=== PATIENT | female | born 1940 | race Caucasian/White ===

== ENCOUNTER → 2016-08-21 | Outpatient (CLI) | payer OTHER ==
[~2016-08-21] MED LIST: PRED20TA PO
--- NOTE | 2016-09-08 00:48 | ECWPNPC ---
PATIENT NAME: JENY ZENDEJAS : 1940 GENDER: FEMALE VISIT DATE: 08/21/2016 DISCHARGE DATE: 08/21/16 1631 VISIT LOCKED DATE TIME: PHYSICIAN: BOBBY MENDES RESOURCE: BOBBY MENDES REASON FOR APPOINTMENT 1. ANAL CANCER PAIN HISTORY OF PRESENT ILLNESS NEW PATIENT CONSULT: 76 Y/O FEMALE HERE FOR PERSISTENT ANAL AND PERINEAL PAIN WITH HX OF RECTAL CANCER.HAS UNDERGONE CHEMOTHERAPY WITH LAST DOSE A FEW MOS. AGO.DESCRIBES PAIN CONSTANT SHARP PAIN.STATES THAT OXYCODONE 5/325 HELPFUL FOR SHORT TERM PAIN.HAVING ISSUES OF CONSTIPATION.RATING PAIN VAS 9/10.PAIN IS AGGREVATED BY PROLONGED SITTING OR STANDING. WHEN DID YOUR PAIN FIRST START? . BRIEFLY DESCRIBE HOW YOUR PAIN STARTED? . HOW DOES YOUR PAIN CHANGE WITH TIME? . DOES YOUR PAIN AWAKEN YOU FROM SLEEP? . HOW MANY HOURS OF SLEEP DO YOU NORMALLY GET? . ANY DIAGNOSTIC TESTING? . FACILITY WHERE TESTS WERE DONE? ____. PAIN TREATMENT TREATMENT YES CANCER HAVE YOU EVER HAD ANY TYPE OF CANCER?NO NO. PAIN SCREENING: PATIENT HAS A COMPLAINT OF ACUTE OR CHRONIC PAIN YES FALL RISK SCREENING: SCREENING :NO FALLS IN THE PAST YEAR CADET INVENTORY: QUESTIONNAIRE ASSESSEDTBD SCORE VALUE CALCULATED TBD CURRENT MEDICATIONS TAKING OXYCODONE-ACETAMINOPHEN 10-325 MG TABLET 1 TABLET NEEDED ORALLY EVERY 6 HRS TAKING COMPAZINE 10 MG TABLET 1 TABLET ORALLY THREE TIMES A DAY NEEDED TAKING LOMOTIL 2.5-0.025 MG TABLET 1 TABLET NEEDED ORALLY EVERY 4 HOURS NEEDED TAKING STOOL SOFTENER 100 MG CAPSULE 1 CAPSULE NEEDED ORALLY TWICE A DAY NEEDED TAKING STOOL SOFTENER & LAXATIVE 8.6-50 MG TABLET 1 TABLET IN THE EVENING NEEDED ORALLY TWICE A DAY NEEDED MEDICATION LIST REVIEWED AND RECONCILED WITH THE PATIENT PAST MEDICAL HISTORY VAGINAL/RECTAL CANCER ALLERGIES N.K.D.A. SURGICAL HISTORY TUBAL LIGATION YEARS AGO [facility] 2015 FAMILY HISTORY FATHER: MOTHER: 3 SON(S) , 2 DAUGHTER(S) . SOCIAL HISTORY GENERAL: PAIN CLINIC PFS, CLERGY, PUBLIC HEALTH REFERRALS PFS REFERRAL NEEDED?NO CLERGY REFERRAL NEEDED?NO PUBLIC HEALTH REFERRAL NEEDED?NO WAS THE PROVIDER NOTIFIED OF ANY PERTINENT INFO?YES PSYCHOLOGICAL HX TREATMENTNO ALCOHOL OR DRUG TREATMENTNO PATIENT: DENIES USE OF ANY ILLEGAL SUBSTANCE INCLUDING MARIJUANA OR COCAINE, DENIES ABUSE OR MISUSE OF ANY MEDICATION. ADVANCED DIRECTIVES HEALTH CARE PROXY?YES NAME OF HCP ANA MARIA ZENDEJAS- SON CONTACT # FOR HCP [phone] IF YES, DO YOU HAVE A COPY WITH YOU?NO DO YOU HAVE A DNR?NO IF NO, WOULD YOU LIKE MORE INFORMATION?NO LIVING WILL?NO IF YES, DO YOU HAVE A COPY WITH YOU?NO POWER OF VETERINARY MEDICINE TEACHER?NO SCREENING/ASSESSMENT TOOL NUTRITION ASSESSEDYES ARE YOU ON ANY SPECIAL DIET?NO ANY SIGNIFICANT CHANGES RELATED TO EATING, WEIGHT GAIN/LOSS, OR BOWEL HABITS?NO IF YES, IS YOUR PRIMARY CARE PROVIDER AWARE OF THIS?NO SPECIAL NEEDS DENTURES: NO , WALKER: NO , CANE: NO , WHEELCHAIR: NO , REFERRALS NEEDED: NO , LEVEL OF CARE? SELF , GLASSES: NO , CONTACTS: NO , HEARING AIDS: NO . TOBACCO USE ARE YOU A:FORMER SMOKER HOW LONG HAS IT BEEN SINCE YOU LAST SMOKED? 49 YEARS AGO VAPORNO E-CIGARETTENO CAFFEINE CAFFEINE USE?NO RECREATIONAL DRUG USE DRUG USE?NO PATIENT DENIES ABUSE OR MISSUSED OF ANY MEDICATION. PATIENT DENIES USE OF ANY ILLEGAL SUBSTANCE INCLUDING MARIJUANA OR COCAINE. REVIEW OF SYSTEMS CONSTITUTIONAL: ANY CHANGE IN YOUR MEDICAL CONDITION? NO . CHILLS NO . FEVER NO . INFECTION: DO YOU HAVE NEW INFECTIONS? NO . DO YOU HAVE HISTORY OF MRSA? NO . MUSCULOSKELETAL: ANY NEW PATTERNS OF PAIN OR NUMBNESS? NO . SYTEMIC LUPUS NO . GASTROENTEROLOGY: ANY NEW CHANGE IN BOWEL CONTROL? NO . BARRETTS ESOPHAGUS NO . CIRRHOSIS NO . HEPATITIS NO . LIVER FAILURE NO . ACID REFLUX NO . UNEXPLAINED WEIGHT LOSS NO . GENITOURINARY: ANY NEW CHANGE IN BLADDER CONTROL? NO . IS THERE A CHANCE YOU COULD BE ? NO . HEMATOLOGY/LYMPH: DO YOU TAKE ANY BLOOD THINNERS? (FOR EXAMPLE- COUMADIN, PLAVIX, AGGRENOX, PLATEL, PRADAXA, OR XARELTO) NO . WHEN WAS YOUR LAST DOSE? DATE: TIME: . LOW PLATELET COUNT NO . SICKLE CELL DISEASE NO . VON WILLIEBRANDS NO . FACTOR V LEIDEN NO . THALLASEMIA NO . ANEMIA NO . EASY BRUISING NO . NEUROLOGY: HAVE YOU FALLEN IN THE PAST 6 MONTHS? NO . ANY NEW EXTREMITY NUMBNESS OR WEAKNESS? NO . HEAD INJURY NO . DEMENTIA NO . CEREBRAL PALSY NO . MULTIPLE SCLEROSIS NO . DIZZINESS NO . HEADACHE NO . STROKES NO . VERTIGO NO . CARDIOLOGY: DO YOU HAVE A PACEMAKER OR DEFIBRILLATOR? NO . ANGINA NO . HEART ATTACK NO . HEART SURGERY NO . CONGESTIVE HEART FAILURE/FLUID OVERLOAD NO . CHEST PAIN NO . HIGH BLOOD PRESSURE NO . IRREGULAR HEART BEAT NO . RESPIRATORY: HAVE YOU BEEN SICK IN THE PAST WEEK? NO . FEVER NO . FLU LIKE SYMPTOMS? NO . CPAP NO . BYPAP NO . ASTHMA NO . EMPHYSEMA NO . CHRONIC LUNG DISEASES NO . SHORTNESS OF BREATH ON EXERTION NO . DO YOU USE ANY TYPE OF TOBACCO (SMOKE, SMOKELESS, CHEW)? NO . COUGH NO . SNORING NO . INTEGUMENTARY: DO YOU HAVE ANY RASHES OR OPEN SORES? NO . ALLERGIC/IMMUNO: ARE YOU ALLERGIC TO SHELLFISH OR IV DYE? NO . ANY NEW ALLERGIES? NO . PSYCHIATRIC: DO YOU HAVE THOUGHTS OF HURTING YOURSELF OR SOMEONE ELSE? NO . ARE YOU ABUSED, NEGLECTED, OR IN AN UNSAFE ENVIRONMENT? NO . ENDOCRINOLOGY: ARE YOU DIABETIC? NO . THYROID DISORDER NO . OTHER: DO YOU NEED ANY PRESCRIPTIONS? NO . IF YES, PLEASE LIST: ____ . ANY NEW PROBLEMS WITH YOUR MEDICATIONS? NO . WHEN DID YOU LAST EAT? ____ . WHEN DID YOU LAST DRINK? ____ . WHAT DID YOU LAST DRINK? ____ . NAME OF PERSON DRIVING YOU HOME? ____ . DO YOU HAVE ANY OTHER QUESTIONS OR CONCERNS NO . REVIEWED BY: PROVIDER: BOBBY REYNOLDS . VITAL SIGNS WT 94 LBS, HT 55 IN, BMI 21.85 INDEX, BP 142/72 MM HG, HR 80 /MIN, RR 16 /MIN, TEMP 97.1 F, OXYGEN SAT % 93%, REVIEWED BY: CS. EXAMINATION GENERAL EXAMINATION: GENERAL APPEARANCE:CACHECTIC.ALERT AND ORIENTED X3. HEENT:NORMAL. NECK:NO LYMPHADENOPATHY. CHEST:CLEAR TO AUSCULTATION. HEART:HEART RATE REGULAR S1/2 NL. ABDOMEN:NO RIGIDITY, NO MASSES PALPATED. 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 PROCEDURE CODES FA211 ESTABILISHED PATIENT [facility] CHARGE FOLLOW UP 2 WEEKS ELECTRONICALLY SIGNED BY RODOLFO LEON ON 09/07/2016 AT 01:23 PM EST DISCLAIMER : THIS IS A VISIT SUMMARY EXTRACTED FROM THE [employer] CHART. IT IS NOT A COPY OF THE [employer] PROGRESS NOTE. BOBBY
== END ==
LOC: M PAIN 15:20
PROVIDERS: ATTEND Nurse Practitioner Family
DX: R10.2 Pelvic and perineal pain (principal); C20 Malignant neoplasm of rectum; C52 Malignant neoplasm of vagina; Z79.891 Long term (current) use of opiate analgesic; Z79.899 Other long term (current) drug therapy; Z92.21 Personal history of antineoplastic chemotherapy

== ENCOUNTER → 2016-09-04 | Outpatient (CLI) | payer OTHER ==
--- NOTE | 2016-09-04 23:49 | ECWPNPC ---
PATIENT NAME: JENY ZENDEJAS : 1940 GENDER: FEMALE VISIT DATE: 09/04/2016 DISCHARGE DATE: 09/04/16 1102 VISIT LOCKED DATE TIME: PHYSICIAN: BOBBY MENDES RESOURCE: BOBBY MENDES REASON FOR APPOINTMENT 1. ANAL CANCER PAIN HISTORY OF PRESENT ILLNESS HISTORY OF PRESENT ILLNESS: HERE FOR F/U AND MEDICATION MANAGEMENT OF ANAL AND PELVIC PAIN W HX OF ANAL CA.STARTED ON FENTANYL PATCH 25MCG LAST VISIT 2WK AGO.FEELS LIKE IT HAS HELPED.USING ALL 4 PERCOCET DAILY .DISCUSSED MEDICATION TREATMENT PLAN.RATING PAIN VAS 8/10.BOWEL REGIMEN IN PLACE AND BM DIARY IS SHOWING REGULAR BOWEL MOVEMENTS. FALL RISK SCREENING: SCREENING :NO FALLS IN THE PAST YEAR CURRENT MEDICATIONS TAKING COMPAZINE 10 MG TABLET 1 TABLET ORALLY THREE TIMES A DAY NEEDED TAKING LOMOTIL 2.5-0.025 MG TABLET 1 TABLET NEEDED ORALLY EVERY 4 HOURS NEEDED TAKING STOOL SOFTENER 100 MG CAPSULE 1 CAPSULE NEEDED ORALLY TWICE A DAY NEEDED TAKING STOOL SOFTENER & LAXATIVE 8.6-50 MG TABLET 1 TABLET IN THE EVENING NEEDED ORALLY TWICE A DAY NEEDED TAKING FENTANYL 25 MCG/HR PATCH 72 HOUR 1 PATCH TO SKIN TRANSDERMAL 1 PATCH A65U=HFL TAKING COLACE 100 MG CAPSULE 2 ORALLY AM AND PM TAKING PERCOCET 10-325 MG TABLET 1 TABLET NEEDED ORALLY EVERY 6 HRS PRN MDD4 NOT-TAKING OXYCODONE-ACETAMINOPHEN 10-325 MG TABLET 1 TABLET NEEDED ORALLY EVERY 6 HRS MEDICATION LIST REVIEWED AND RECONCILED WITH THE PATIENT PAST MEDICAL HISTORY VAGINAL/RECTAL CANCER SOCIAL HISTORY GENERAL: TOBACCO USE ARE YOU A:NONSMOKER LEARNING BARRIERS / SPECIAL NEEDS ORIENTED TO PLAN OF CARE: PATIENT, PAIN MANAGEMENT PATIENT, ORIENTED TO PLAN OF CARE: PATIENT, PAIN MANAGEMENT PATIENT. NEW PATIENT PAIN DIARY TODAY'S VISITNOTES FROM 0-10, WHAT LEVEL IS YOUR PAIN TODAY?0 PAIN CLINIC PFS, CLERGY, PUBLIC HEALTH REFERRALS PFS REFERRAL NEEDED?NO CLERGY REFERRAL NEEDED?NO PUBLIC HEALTH REFERRAL NEEDED?NO WAS THE PROVIDER NOTIFIED OF ANY PERTINENT INFO?NO PFS REFERRAL NEEDED?NO CLERGY REFERRAL NEEDED?NO PUBLIC HEALTH REFERRAL NEEDED?NO WAS THE PROVIDER NOTIFIED OF ANY PERTINENT INFO?NO REVIEW OF SYSTEMS CONSTITUTIONAL: ANY CHANGE IN YOUR MEDICAL CONDITION? NO . CHILLS NO . FEVER NO . INFECTION: DO YOU HAVE NEW INFECTIONS? NO . DO YOU HAVE HISTORY OF MRSA? NO . MUSCULOSKELETAL: ANY NEW PATTERNS OF PAIN OR NUMBNESS? NO . GASTROENTEROLOGY: ANY NEW CHANGE IN BOWEL CONTROL? NO . GENITOURINARY: ANY NEW CHANGE IN BLADDER CONTROL? NO . IS THERE A CHANCE YOU COULD BE ? NO . HEMATOLOGY/LYMPH: DO YOU TAKE ANY BLOOD THINNERS? (FOR EXAMPLE- COUMADIN, PLAVIX, AGGRENOX, PLATEL, PRADAXA, OR XARELTO) NO . WHEN WAS YOUR LAST DOSE? DATE: TIME: . NEUROLOGY: HAVE YOU FALLEN IN THE PAST 6 MONTHS? NO . ANY NEW EXTREMITY NUMBNESS OR WEAKNESS? NO . CARDIOLOGY: DO YOU HAVE A PACEMAKER OR DEFIBRILLATOR? NO . RESPIRATORY: HAVE YOU BEEN SICK IN THE PAST WEEK? NO . FEVER NO . FLU LIKE SYMPTOMS? NO . COUGH NO . INTEGUMENTARY: DO YOU HAVE ANY RASHES OR OPEN SORES? NO . ALLERGIC/IMMUNO: ARE YOU ALLERGIC TO SHELLFISH OR IV DYE? NO . ANY NEW ALLERGIES? NO . PSYCHIATRIC: DO YOU HAVE THOUGHTS OF HURTING YOURSELF OR SOMEONE ELSE? NO . ARE YOU ABUSED, NEGLECTED, OR IN AN UNSAFE ENVIRONMENT? NO . ENDOCRINOLOGY: ARE YOU DIABETIC? NO . OTHER: DO YOU NEED ANY PRESCRIPTIONS? NO . IF YES, PLEASE LIST: ____ . ANY NEW PROBLEMS WITH YOUR MEDICATIONS? NO . WHEN DID YOU LAST EAT? ____ . WHEN DID YOU LAST DRINK? ____ . WHAT DID YOU LAST DRINK? ____ . NAME OF PERSON DRIVING YOU HOME? ____ . DO YOU HAVE ANY OTHER QUESTIONS OR CONCERNS NO . REVIEWED BY: PROVIDER: BOBBY REYNOLDS . VITAL SIGNS WT 84 LBS, HT 55 IN, BMI 19.52 INDEX, HR 77 /MIN, RR 18 /MIN, TEMP 95.8 F, OXYGEN SAT % 98, SAFE IN ENV? (Y/N) YES, REVIEWED BY: KG. EXAMINATION GENERAL EXAMINATION: HEENT:UNREMARKABLE. LUNGS:LUNG SOUNDS ARE CLEAR.NON LABORED. HEART:HEART RATE REGULAR.S1S2. ABDOMEN:SOFT AND NOT TENDER. 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 , RISKS AND BENEFITS OF NARCOTIC/OPIOD MEDICATIONS WERE REVIEWED WITH PATIENT - THIS INCLUDES BUT IS NOT LIMITED TO RISK OF DEPENDANCE/DEVELOPMENT OF ADDICTION, MOOD DISTURBANCE AND DEPRESSION, OSTEOPOROSIS, HORMONAL AND LABIDAL CHANGES, RESPIRATORY DEPRESSION AND . PATIENT IS ADVISED NOT TO DRIVE WHILE ON THESE MEDICATIONS. PROCEDURE CODES FA211 ESTABILISHED PATIENT [facility] CHARGE FOLLOW UP 2 WEEKS ELECTRONICALLY SIGNED BY RODOLFO LEON ON 09/04/2016 AT 01:28 PM EST DISCLAIMER : THIS IS A VISIT SUMMARY EXTRACTED FROM THE [employer] CHART. IT IS NOT A COPY OF THE [employer] PROGRESS NOTE. [email or web address]
== END ==
LOC: M PAIN 10:20
PROVIDERS: ATTEND Nurse Practitioner Family
DX: C21.0 Malignant neoplasm of anus, unspecified (principal); K62.89 Other specified diseases of anus and rectum; Z79.891 Long term (current) use of opiate analgesic

== ENCOUNTER → 2016-09-18 | Outpatient (CLI) | payer OTHER ==
--- NOTE | 2016-09-27 00:42 | ECWPNPC ---
PATIENT NAME: JENY ZENDEJAS : 1940 GENDER: FEMALE VISIT DATE: 09/18/2016 DISCHARGE DATE: 09/18/16 1045 VISIT LOCKED DATE TIME: PHYSICIAN: BOBBY MENDES RESOURCE: BOBBY MENDES REASON FOR APPOINTMENT 1. ANAL CANCER PAIN HISTORY OF PRESENT ILLNESS HISTORY OF PRESENT ILLNESS: HERE FOR F/U AND MEDICATION MANAGEMENT OF ANAL AND PELVIC PAIN W HX OF ANAL CA.INCRESED FENTANYL PATCH TO 50MCG LAST VISIT 2WK AGO.FEELS LIKE IT HAS HELPED.USING ALL 4 PERCOCET DAILY .DISCUSSED MEDICATION TREATMENT PLAN.RATING PAIN VAS 7/10.BOWEL REGIMEN IN PLACE AND BM DIARY IS SHOWING REGULAR BOWEL MOVEMENTS. PAIN THE PATIENT DESCRIBES THE PAIN... THE PATIENT DESCRIBES THE PAIN... FALL RISK SCREENING: SCREENING :NO FALLS IN THE PAST YEAR CURRENT MEDICATIONS TAKING COMPAZINE 10 MG TABLET 1 TABLET ORALLY THREE TIMES A DAY NEEDED TAKING LOMOTIL 2.5-0.025 MG TABLET 1 TABLET NEEDED ORALLY EVERY 4 HOURS NEEDED TAKING STOOL SOFTENER 100 MG CAPSULE 1 CAPSULE NEEDED ORALLY TWICE A DAY NEEDED TAKING STOOL SOFTENER & LAXATIVE 8.6-50 MG TABLET 1 TABLET IN THE EVENING NEEDED ORALLY TWICE A DAY NEEDED TAKING PERCOCET 10-325 MG TABLET 1 TABLET NEEDED ORALLY EVERY 6 HRS PRN MDD4 TAKING FENTANYL 50 MCG/HR PATCH 72 HOUR 1 PATCH TO SKIN TRANSDERMAL 1 PATCH E06N=FXT TAKING COLACE 100 MG CAPSULE 2 ORALLY AM AND PM NOT-TAKING OXYCODONE-ACETAMINOPHEN 10-325 MG TABLET 1 TABLET NEEDED ORALLY EVERY 6 HRS MEDICATION LIST REVIEWED AND RECONCILED WITH THE PATIENT PAST MEDICAL HISTORY VAGINAL/RECTAL CANCER ALLERGIES N.K.D.A. SOCIAL HISTORY GENERAL: TOBACCO USE ARE YOU A:NONSMOKER LEARNING BARRIERS / SPECIAL NEEDS ORIENTED TO PLAN OF CARE: PATIENT, PAIN MANAGEMENT PATIENT, ORIENTED TO PLAN OF CARE: PATIENT, PAIN MANAGEMENT PATIENT. NEW PATIENT PAIN DIARY TODAY'S VISITNOTES FROM 0-10, WHAT LEVEL IS YOUR PAIN TODAY?0 PAIN CLINIC PFS, CLERGY, PUBLIC HEALTH REFERRALS PFS REFERRAL NEEDED?NO CLERGY REFERRAL NEEDED?NO PUBLIC HEALTH REFERRAL NEEDED?NO WAS THE PROVIDER NOTIFIED OF ANY PERTINENT INFO?NO PFS REFERRAL NEEDED?NO CLERGY REFERRAL NEEDED?NO PUBLIC HEALTH REFERRAL NEEDED?NO WAS THE PROVIDER NOTIFIED OF ANY PERTINENT INFO?NO REVIEW OF SYSTEMS CONSTITUTIONAL: ANY CHANGE IN YOUR MEDICAL CONDITION? NO . CHILLS NO . FEVER NO . INFECTION: DO YOU HAVE NEW INFECTIONS? NO . DO YOU HAVE HISTORY OF MRSA? NO . MUSCULOSKELETAL: ANY NEW PATTERNS OF PAIN OR NUMBNESS? NO . GASTROENTEROLOGY: ANY NEW CHANGE IN BOWEL CONTROL? NO . GENITOURINARY: ANY NEW CHANGE IN BLADDER CONTROL? NO . IS THERE A CHANCE YOU COULD BE ? NO . HEMATOLOGY/LYMPH: DO YOU TAKE ANY BLOOD THINNERS? (FOR EXAMPLE- COUMADIN, PLAVIX, AGGRENOX, PLATEL, PRADAXA, OR XARELTO) NO . WHEN WAS YOUR LAST DOSE? DATE: TIME: . NEUROLOGY: HAVE YOU FALLEN IN THE PAST 6 MONTHS? NO . ANY NEW EXTREMITY NUMBNESS OR WEAKNESS? NO . CARDIOLOGY: DO YOU HAVE A PACEMAKER OR DEFIBRILLATOR? NO . RESPIRATORY: HAVE YOU BEEN SICK IN THE PAST WEEK? NO . FEVER NO . FLU LIKE SYMPTOMS? NO . COUGH NO . INTEGUMENTARY: DO YOU HAVE ANY RASHES OR OPEN SORES? NO . ALLERGIC/IMMUNO: ARE YOU ALLERGIC TO SHELLFISH OR IV DYE? NO . ANY NEW ALLERGIES? NO . PSYCHIATRIC: DO YOU HAVE THOUGHTS OF HURTING YOURSELF OR SOMEONE ELSE? NO . ARE YOU ABUSED, NEGLECTED, OR IN AN UNSAFE ENVIRONMENT? NO . ENDOCRINOLOGY: ARE YOU DIABETIC? NO . OTHER: DO YOU NEED ANY PRESCRIPTIONS? NO . IF YES, PLEASE LIST: ____ . ANY NEW PROBLEMS WITH YOUR MEDICATIONS? NO . WHEN DID YOU LAST EAT? ____ . WHEN DID YOU LAST DRINK? ____ . WHAT DID YOU LAST DRINK? ____ . NAME OF PERSON DRIVING YOU HOME? ____ . DO YOU HAVE ANY OTHER QUESTIONS OR CONCERNS NO . REVIEWED BY: PROVIDER: BOBBY REYNOLDS . VITAL SIGNS WT 84 LBS, HT 55 IN, BMI 19.52 INDEX, BP 122/61 MM HG, HR 94 /MIN, RR 16 /MIN, TEMP 97.6 F, OXYGEN SAT % 97%, REVIEWED BY: CS. EXAMINATION GENERAL EXAMINATION: HEENT:UNREMARKABLE. LUNGS:LUNG SOUNDS ARE CLEAR.NON LABORED. HEART:HEART RATE REGULAR.S1S2. ABDOMEN:SOFT AND NOT TENDER. 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 CHART. IT IS NOT A COPY OF THE [employer] PROGRESS NOTE. MTDD
== END ==
LOC: M PAIN 10:00
PROVIDERS: ATTEND Nurse Practitioner Family
DX: C21.0 Malignant neoplasm of anus, unspecified (principal); K62.89 Other specified diseases of anus and rectum; Z79.891 Long term (current) use of opiate analgesic; Z79.899 Other long term (current) drug therapy

== ENCOUNTER → 2016-09-19 | Outpatient (CLI) | payer OTHER ==
--- NOTE | 2016-09-19 19:26 | REP ---
Whole body PET / CT scan: Comparison is the CT of the abdomen and pelvis dated 08/03/2016. 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 The scan is performed of the skull base to the upper thighs. Neck and supraclavicular areas: There are no hypermetabolic foci. Artifactual uptake in the vocal cords. Chest: There are no hypermetabolic foci. Abdomen, pelvis and upper thighs: There is an hypermetabolic mass in the pelvic floor to the right of midline extending medially to the distal rectosigmoid colon and a likely to the cervix, maximal standard uptake value measuring 7.4, compatible with neoplasm. This questionably extends to the posterior bladder wall on the right. There is no bladder wall thickening. There is no pelvic, retroperitoneal or abdominal lymph node uptake. On the comparison CT there was a bone island versus blastic metastasis posteriorly in the left iliac wing. On the PET scan today there is no uptake in this lesion, this is compatible with a benign bone island. No other skeletal uptake is identified. There is nonspecific bowel uptake. Impression: There is hypermetabolic uptake in the patient's known pelvic mass. 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 This mass extends to the distal rectosigmoid area and likely extends to the cervix. It questionably extends to the posterior bladder wall on the right, however, there is no bladder wall thickening and no uptake in the bladder wall, however there is faintly visible uptake in the soft tissue plane between this mass and the posterior bladder wall on the right. No lymph node uptake is identified in the abdomen or pelvis. There is no skeletal uptake. On the CT accompanying the PET scan today the gallbladder is markedly distended measuring 5 cm transverse diameter, compatible with hydrops by size criteria, however, there is no gallbladder wall thickening or pericholecystic fluid to suggest acute cholecystitis. Multiple gallbladder calculi are again noted. The in addition there are multiple small gallbladder calculi within the common biliary duct. Upon review this was also present on the comparison CT scan. The common biliary duct measures 1.5 cm diameter on the PET scan today and is dilated (it measured 8.4 mm on the comparison CT which is upper normal). There is intrahepatic biliary duct dilatation centrally but not peripherally. This is unchanged from the comparison CT. Signed by Sanjeev Farais MD 09/19/2016 07:17 P
== END ==
LOC: M RAD 10:50
PROVIDERS: ATTEND Radiology Radiation Oncology
DX: C52 Malignant neoplasm of vagina (principal); K80.20 Calculus of gallbladder without cholecystitis without obstruction
CPT/HCPCS: 78815; A9552

== ENCOUNTER → 2016-09-20 | Outpatient (CLI) | payer OTHER ==
--- NOTE | 2016-09-20 10:17 | REP ---
TWO VIEW CHEST: No comparisons. Two views of the chest are performed. There is mild biapical pleural thickening and mild scattered interstitial fibrotic change. There is no acute infiltrate or pulmonary edema. The heart is normal in size. The mediastinal silhouette is unremarkable. Right MediPort catheter is seen with the tip in the right atrium. There are mild degenerative changes in the spine. IMPRESSION: Mild chronic changes in the lungs without evidence of acute pulmonary disease. Signed by Sanjeev Fagan MD 09/20/2016 01:19 P
== END | disposition home or self-care (01) ==
LOC: M RAD 09:49
PROVIDERS: ATTEND Internal Medicine Medical Oncology
DX: C20 Malignant neoplasm of rectum (principal); R91.8 Other nonspecific abnormal finding of lung field

== ENCOUNTER → 2016-10-11 | Outpatient (CLI) | payer OTHER ==
--- NOTE | 2016-10-12 00:16 | ECWPNPC ---
PATIENT NAME: JENY ZENDEJAS : 1940 GENDER: FEMALE VISIT DATE: 10/11/2016 DISCHARGE DATE: 10/11/16 1056 VISIT LOCKED DATE TIME: PHYSICIAN: BOBBY MENDES RESOURCE: BOBBY MENDES REASON FOR APPOINTMENT 1. ABDOMINAL PAIN HISTORY OF PRESENT ILLNESS HISTORY OF PRESENT ILLNESS: HERE FOR F/U AND MANAGEMENT OF RECTAL/PELVIC PAIN W HX OF RECTAL CA.INSURANCE WONT COVER FENTANYLPATCH.RATING PAIN VAS 8/10.DISCUSSED MEDICATION OPTIONS. PAIN THE PATIENT DESCRIBES THE PAIN... FALL RISK SCREENING: SCREENING :NO FALLS IN THE PAST YEAR CURRENT MEDICATIONS TAKING COMPAZINE 10 MG TABLET 1 TABLET ORALLY THREE TIMES A DAY NEEDED TAKING LOMOTIL 2.5-0.025 MG TABLET 1 TABLET NEEDED ORALLY EVERY 4 HOURS NEEDED TAKING STOOL SOFTENER 100 MG CAPSULE 1 CAPSULE NEEDED ORALLY TWICE A DAY NEEDED TAKING STOOL SOFTENER & LAXATIVE 8.6-50 MG TABLET 1 TABLET IN THE EVENING NEEDED ORALLY TWICE A DAY NEEDED TAKING COLACE 100 MG CAPSULE 2 ORALLY AM AND PM TAKING FENTANYL 50 MCG/HR PATCH 72 HOUR 1 PATCH TO SKIN TRANSDERMAL 1 PATCH [id number]=XTP TAKING PERCOCET 10-325 MG TABLET 1 TABLET NEEDED ORALLY EVERY 6 HRS PRN MDD4 TAKING FUROSEMIDE 20 MG TABLET 1 TABLET ORALLY ONCE A DAY TAKING POTASSIUM CHLORIDE ER 10 MEQ TABLET EXTENDED RELEASE 1 TABLET WITH FOOD ORALLY ONCE A DAY NOT-TAKING OXYCODONE-ACETAMINOPHEN 10-325 MG TABLET 1 TABLET NEEDED ORALLY EVERY 6 HRS MEDICATION LIST REVIEWED AND RECONCILED WITH THE PATIENT PAST MEDICAL HISTORY VAGINAL/RECTAL CANCER ALLERGIES N.K.D.A. SOCIAL HISTORY GENERAL: TOBACCO USE ARE YOU A:NONSMOKER LEARNING BARRIERS / SPECIAL NEEDS ORIENTED TO PLAN OF CARE: PATIENT, PAIN MANAGEMENT PATIENT, ORIENTED TO PLAN OF CARE: PATIENT, PAIN MANAGEMENT PATIENT. NEW PATIENT PAIN DIARY TODAY'S VISITNOTES FROM 0-10, WHAT LEVEL IS YOUR PAIN TODAY?0 PAIN CLINIC PFS, CLERGY, PUBLIC HEALTH REFERRALS PFS REFERRAL NEEDED?NO CLERGY REFERRAL NEEDED?NO PUBLIC HEALTH REFERRAL NEEDED?NO WAS THE PROVIDER NOTIFIED OF ANY PERTINENT INFO?NO PFS REFERRAL NEEDED?NO CLERGY REFERRAL NEEDED?NO PUBLIC HEALTH REFERRAL NEEDED?NO WAS THE PROVIDER NOTIFIED OF ANY PERTINENT INFO?NO REVIEW OF SYSTEMS CONSTITUTIONAL: ANY CHANGE IN YOUR MEDICAL CONDITION? NO . CHILLS NO . FEVER NO . INFECTION: DO YOU HAVE NEW INFECTIONS? NO . DO YOU HAVE HISTORY OF MRSA? NO . MUSCULOSKELETAL: ANY NEW PATTERNS OF PAIN OR NUMBNESS? NO . GASTROENTEROLOGY: ANY NEW CHANGE IN BOWEL CONTROL? NO . GENITOURINARY: ANY NEW CHANGE IN BLADDER CONTROL? NO . IS THERE A CHANCE YOU COULD BE ? NO . HEMATOLOGY/LYMPH: DO YOU TAKE ANY BLOOD THINNERS? (FOR EXAMPLE- COUMADIN, PLAVIX, AGGRENOX, PLATEL, PRADAXA, OR XARELTO) NO . WHEN WAS YOUR LAST DOSE? DATE: TIME: . NEUROLOGY: HAVE YOU FALLEN IN THE PAST 6 MONTHS? NO . ANY NEW EXTREMITY NUMBNESS OR WEAKNESS? NO . CARDIOLOGY: DO YOU HAVE A PACEMAKER OR DEFIBRILLATOR? NO . RESPIRATORY: HAVE YOU BEEN SICK IN THE PAST WEEK? NO . FEVER NO . FLU LIKE SYMPTOMS? NO . COUGH NO . INTEGUMENTARY: DO YOU HAVE ANY RASHES OR OPEN SORES? NO . ALLERGIC/IMMUNO: ARE YOU ALLERGIC TO SHELLFISH OR IV DYE? NO . ANY NEW ALLERGIES? NO . PSYCHIATRIC: DO YOU HAVE THOUGHTS OF HURTING YOURSELF OR SOMEONE ELSE? NO . ARE YOU ABUSED, NEGLECTED, OR IN AN UNSAFE ENVIRONMENT? NO . ENDOCRINOLOGY: ARE YOU DIABETIC? NO . OTHER: DO YOU NEED ANY PRESCRIPTIONS? YES PT'S SON STATES THEY CANNOT FILL FENTANYL SCRIPT UNTIL 10/17 PER [facility] IN [place].&NBSP;. IF YES, PLEASE LIST: &NBSP;&NBSP; ____&NBSP;. ANY NEW PROBLEMS WITH YOUR MEDICATIONS? &NBSP;&NBSP; NO&NBSP;. WHEN DID YOU LAST EAT? &NBSP;&NBSP; ____&NBSP;. WHEN DID YOU LAST DRINK? &NBSP;&NBSP; ____&NBSP;. WHAT DID YOU LAST DRINK? &NBSP;&NBSP; ____&NBSP;. NAME OF PERSON DRIVING YOU HOME? &NBSP;&NBSP; ____&NBSP;. DO YOU HAVE ANY OTHER QUESTIONS OR CONCERNS &NBSP;&NBSP; NO&NBSP;. REVIEWED BY: PROVIDER: BOBBY REYNOLDS . VITAL SIGNS WT 84.8 LBS, HT 55 IN, BMI 19.71 INDEX, BP 114/63 MM HG, HR 59 /MIN, RR 16 /MIN, TEMP 96.5 F, OXYGEN SAT % 97, NA INITIALS TL 1009, REVIEWED BY: MLF. EXAMINATION GENERAL EXAMINATION: HEENT:UNREMARKABLE. LUNGS:LUNG SOUNDS ARE CLEAR.NON LABORED. HEART:HEART RATE REGULAR.S1S2. ABDOMEN:SOFT AND NOT TENDER. 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) ANAL PAIN - K62.89 CHRONIC PRESCRIPTION OPIATE USE - Z79.891 TREATMENT ANAL CANCER STOP FENTANYL PATCH 72 HOUR, 50 MCG/HR, 1 PATCH TO SKIN, TRANSDERMAL, 1 PATCH [id number]=EPP REFILL PERCOCET TABLET, 10-325 MG, 1 TABLET NEEDED, ORALLY, EVERY 6 HRS PRN MDD4, 30 DAY(S), 120, REFILLS 0 START MORPHINE SULFATE ER TABLET EXTENDED RELEASE, 15 MG, 1 TABLET, ORALLY, EVERY 12 HRS MDD2, 30 DAY(S), 60, REFILLS 0 PROCEDURE CODES FA211 ESTABILISHED PATIENT [facility] CHARGE DISPOSITION & COMMUNICATION FOLLOW UP 4 WEEKS ELECTRONICALLY SIGNED BY RODOLFO LEON ON 10/11/2016 AT 02:24 PM EST DISCLAIMER : THIS IS A VISIT SUMMARY EXTRACTED FROM THE [facility] CHART. IT IS NOT A COPY OF THE [facility] PROGRESS NOTE. BOBBY
== END ==
LOC: M PAIN 10:00
PROVIDERS: ATTEND Nurse Practitioner Family
DX: Z09 Encounter for follow-up examination after completed treatment for conditions other than malignant neoplasm (principal); G89.29 Other chronic pain; C21.0 Malignant neoplasm of anus, unspecified; K62.89 Other specified diseases of anus and rectum; Z79.891 Long term (current) use of opiate analgesic; Z79.899 Other long term (current) drug therapy